=== PATIENT | male | born 1960 | race Caucasian/White ===

== ENCOUNTER → 2024-03-05 | Outpatient (CLI) | payer MEDICARE ==
--- NOTE | 2024-03-05 17:05 | US ---
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 No nephrolithiasis is seen. No ana s are identified. The urinary bladder is anechoic. Bilateral ureteral jets are seen. IMPRESSION: 1. No solid renal mass, renal calcification or hydronephrosis. 2. Multiple urinary bladder diverticula
== END | disposition home or self-care (01) ==
LOC: RADUSWWP 15:03
PROVIDERS: ATTEND Urology
DX: N32.3 Diverticulum of bladder (principal); D41.01 Neoplasm of uncertain behavior of right kidney; N28.89 Other specified disorders of kidney and ureter; Z85.51 Personal history of malignant neoplasm of bladder
CPT/HCPCS: 76770